=== PATIENT | male | born 1955 | race Caucasian/White ===

== ENCOUNTER 2018-01-10 09:55 | Day surgery (SDC) | payer OTHER ==
[~2018-01-10 09:55] MED LIST: LACTATED RINGERS 1,000 ML IV SCH; LIDOCAINE 1% 20 ML VIAL (10MG/ML) FOR IV START INTRADERMA PRN
[2018-01-10 10:54] VITALS: TEMP 97.6
--- NOTE | 2018-01-10 11:15 | P.GSHP ---
History of Present Illness H&P Date: 01/10/18 Chief Complaint: GI bleed This is a 62-year-old male referred from Dr. Maryam valentine. Patient presents today for colonoscopy. He's had issues with GI bleed. Past Medical History Past Medical History: GERD/Reflux Additional Past Medical History / Comment(s): COLON POLYPS AT FIRST COLONOSCOPY. History of Any Multi-Drug Resistant Organisms: None Reported Additional Past Surgical History / Comment(s): L5 TEAR IN DISC. BILATERAL ING HERNIA. Past Anesthesia/Blood Transfusion Reactions: No Reported Reaction Smoking Status: Never smoker Past Alcohol Use History: Rare Past Drug Use History: None Reported Medications and Allergies Home Medications Medication Instructions Recorded Confirmed Type ALPRAZolam [Xanax] 0.5 mg PO DAILY PRN 01/07/18 01/10/18 History Levothyroxine Sodium [Synthroid] 25 mcg PO QAM 01/07/18 01/10/18 History Omeprazole 20 mg PO Q7DAYS 01/07/18 01/10/18 History Allergies Allergy/AdvReac Type Severity Reaction Status Date / Time hydromorphone [From Dilaudid] AdvReac Nausea & Verified 01/07/18 08:39 Vomiting Surgical - Exam Vital Signs Temp Pulse Resp BP Pulse Ox 97.6 F 64 16 149/92 97 01/10/18 10:53 01/10/18 10:53 01/10/18 10:53 01/10/18 10:53 01/10/18 10:53 - General well developed, no distress - Eyes PERRL - ENT normal pinna - Neck no masses - Respiratory normal expansion - Cardiovascular Rhythm: regular - Abdomen Abdomen: soft, non tender Assessment and Plan Assessment: GI bleed. We'll perform colonoscopy
[2018-01-10] MEDS ORDERED: LIDOCAINE 1% INJ 10MG/ML (20 ML MDV) ONE (11:19)
[2018-01-10] MEDS ORDERED: PROPOFOL 10 MG/ML 20 ML VIAL IV ONE (11:19)
--- NOTE | 2018-01-10 11:35 | P.OP ---
Date of Procedure: 01/10/18 Preoperative Diagnosis: GI bleed Postoperative Diagnosis: Normal colonoscopy Procedure(s) Performed: Colonoscopy Anesthesia: MAC Surgeon: Adriel Galvan Pathology: none sent Condition: stable Disposition: PACU Description of Procedure: PROCEDURE: The patient was placed on the endoscopy table in the lateral position. Digital rectal examination was performed which revealed no abnormalities. The prostate was symmetrical without nodules. Flexible colonoscope was then placed in the patient's anus and passed throughout the entire colon. The ileocecal valve was visualized. The cecum, ascending, transverse, descending and sigmoid colon were normal. The rectum was normal as well. There were no masses, polyps or diverticula noted in the entire colon. SUMMARY OF FINDINGS: Normal colonoscopy.
[2018-01-10 11:49] VITALS: BP 127/79; PULSE 60; RESP 18
== END 2018-01-10 12:08 | disposition home or self-care (01) ==
LOC: ORWHC2ENDO 09:55
PROVIDERS: ATTEND Surgery
DX: K92.2 Gastrointestinal hemorrhage, unspecified (principal); K21.9 Gastro-esophageal reflux disease without esophagitis; E07.9 Disorder of thyroid, unspecified; Z86.010 Personal history of colon polyps; Z79.890 Hormone replacement therapy; Z79.899 Other long term (current) drug therapy; Z88.5 Allergy status to narcotic agent
CPT/HCPCS: 45378; J2001; J2704

== ENCOUNTER → 2022-12-15 | Outpatient (CLI) | payer MEDICARE ==
--- NOTE | 2022-12-15 15:22 | P.SLEEP ---
History of Present Illness H&P Date: 12/15/22 This is a 67-year-old male patient, who is coming in regarding further advice for sleep apnea therapy. 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 For complete clearance, sleep apnea evaluation was also requested. The patient is already done a home sleep study through his primary care physician and the patient was diagnosed having moderate to severe DAHIANA. I reviewed a home sleep study that was on this patient on 03/18/2022. The patient was found to have an AHI of 24.2 with mild nocturnal oxygen desaturations. Lowest pulse ox was 70%. His primary care physician attempted to order a CPAP unit and the patient did not receive any therapy and is coming in for further advice. He does have ongoing symptoms of obstructive sleep apnea. He snores and his been told to quit breathing at night. He goes to bed at around 9:30 PM and awakes at 5:30 AM in the morning. He is averaging about 7 hours of sleep. He wakes up not refreshed. He can easily take naps in the afternoon after work. His weight is stable at 240 pounds over the past several years. No history of any motor vehicle accident because of falling sleep. No history of any cardiac stents. He does not doze off behind the wheel. His current upper score is at 12. He has had issues with palpitations and bigeminy is. He also has issues with hypothyroidism and hypertension and chronic anxiety. No alcohol ingestion. No smoking. No nighttime heartburn, shortness of breath or chest pain. No other significant events otherwise for now. Review of Systems Constitutional: Reports daytime sleepiness Eyes: denies as per HPI, denies blurred vision, denies bulging eye, denies decreased vision, denies diplopia, denies discharge, denies dry eye, denies irritation, denies itching, denies pain, denies photophobia, denies loss of peripheral vision, denies loss of vision, denies tunnel vision/blind spots Ears: deny: decreased hearing, ear discharge, earache, tinnitus Ears, nose, mouth and throat: Reports as per HPI Breasts: absent: as per HPI, gynecomastia Cardiovascular: Reports as per HPI Respiratory: Reports sleep apnea, Reports snoring Gastrointestinal: Reports as per HPI Genitourinary: Reports as per HPI Musculoskeletal: Reports as per HPI Musculoskeletal: absent: ankle pain, ankle stiffness, ankle swelling Integumentary: Reports as per HPI Neurological: Reports as per HPI Psychiatric: Reports as per HPI Endocrine: Reports as per HPI Hematologic/Lymphatic: Reports as per HPI Allergic/Immunologic: Reports as per HPI Past Medical History Past Medical History: GERD/Reflux, Hypertension, Osteoarthritis (OA), Sleep Apnea/CPAP/BIPAP, Thyroid Disorder Additional Past Medical History / Comment(s): COLON POLYPS AT FIRST COLONOSCOPY , hx of covid 2021 History of Any Multi-Drug Resistant Organisms: None Reported Additional Past Surgical History / Comment(s): L5 TEAR IN DISC. BILATERAL ING HERNIA. repair laceration on left hand pointer finger. colonoscopy. Past Anesthesia/Blood Transfusion Reactions: No Reported Reaction Smoking Status: Never smoker - Past Family History Father Family Medical History: COPD Additional Family Medical History / Comment(s): smoker Mother Additional Family Medical History / Comment(s): anxiety. brother has diabetes. Medications and Allergies Home Medications Medication Instructions Recorded Confirmed Type ALPRAZolam [Xanax] 0.5 mg PO DAILY PRN 01/07/18 10/22/22 History Levothyroxine Sodium [Synthroid] 50 mcg PO QAM 01/07/18 10/22/22 History Omeprazole 20 mg PO DAILY PRN 01/07/18 10/22/22 History Losartan Potassium 50 mg PO HS 10/19/22 10/22/22 History Allergies Allergy/AdvReac Type Severity Reaction Status Date / Time hydromorphone [From Dilaudid] AdvReac Nausea & Verified 10/22/22 08:08 Vomiting Physical Exam BP is 156/78, pulse is 93, respirations 16, temperature is 98.1, weight is 244 pounds, height is 5 feet and 10 inches, BMI 34.5 and oxygen saturation is 98% on room air oxygen. The patient appeared well nourished and normally developed. Vital signs as documented. Head exam is unremarkable. No scleral icterus or corneal arcus noted. Neck is without jugular venous distension, thyromegaly, or carotid bruits. The patient is a Mallampati class IV with significant crowding of the posterior oropharynx. Carotid upstrokes are brisk bilaterally. Lungs are clear to auscultation and percussion. Cardiac exam reveals the PMI to be normally sized and situated. Rhythm is regular. First and second heart sounds normal. No murmurs, rubs or gallops. Abdominal exam reveals normal bowel sounds, no masses, no organomegaly and no aortic enlargement. Extremities are nonedematous and both femoral and pedal pulses are normal. Examination of the skin revealed no evidence of significant rashes, suspicious appearing nevi or other concerning lesions.Neurologically, the patient is awake and alert and the patient does not have any focal neurological deficit. Cranial nerves are essentially intact. 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 The patient has moderately severe disease. The patient's symptomatic from his DAHIANA. The patient will be offered a ResMed 11 APAP unit pressures of 5/15 cm of water. The patient is going to be offered a ResMed air fit F 20 fullface mask large size The patient will be encouraged to lose weight The patient will be asked to maintain regular sleep schedule and implement good sleep hygiene principles The patient will see me back in the office in 30-90 days after obtaining his CPAP machine for a compliancy check For clearance for a CVL license to follow Sleep Note - Sleep Note Sleep Note: Temperature: Pulse Rate: Respiratory Rate: Blood Pressure: SpO2: Height: Weight: BMI: Neck Circumference:
== END ==
LOC: SLEEP 14:30
PROVIDERS: ATTEND Internal Medicine Critical Care Medicine
DX: G47.33 Obstructive sleep apnea (adult) (pediatric) (principal); E66.9 Obesity, unspecified; Z68.34 Body mass index [BMI] 34.0-34.9, adult; E03.9 Hypothyroidism, unspecified; I10 Essential (primary) hypertension; F41.9 Anxiety disorder, unspecified; Z99.89 Dependence on other enabling machines and devices; K21.9 Gastro-esophageal reflux disease without esophagitis; M19.90 Unspecified osteoarthritis, unspecified site; Z88.5 Allergy status to narcotic agent; Z79.890 Hormone replacement therapy
CPT/HCPCS: 99211

== ENCOUNTER → 2023-04-20 | Outpatient (CLI) | payer MEDICARE, OTHER ==
--- NOTE | 2023-04-20 16:24 | P.PN ---
Progress Note - Text Progress Note Date: 04/20/23 On today's evaluation of 04/20/2023, I'm seeing this patient for a compliance check regarding his obstructive sleep apnea. As mentioned earlier, the patient has moderately severe disease with an AHI of 24 and the patient was given an APAP unit pressures of 5/15 cm of water. He is also using an Airfit F20 fullface mask large size. He was doing very well. He is trying to get more compliant and increase the number of hours that he is spending on his CPAP unit. He is on average taken around 4 or slightly above 4 hours of sleep while on CPAP. His AHI down to 2.1. Leaks are minimal at this point in time. He wants to also explore other possibilities in the form of masks. He is feeling more refreshed during the day. He is not taking any naps while on CPAP therapy and the has noticed that. He is snorting is also subsided. 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 He has also other comorbidities including hypothyroidism, hypertension and chronic anxiety. On today's evaluation, he failed to bring his Pulmicort to his machine and as such I was unable to look at the compliance data from the monitor. I was able to access his dashboard on his smart phone. I noticed that the patient needs to put slightly more hours to reach on average of 5 hours per night. Nevertheless, in terms of efficacy, his treatment is successful. His current vitals BP is 151/83, pulse is 81, respirations 12, temperature is 97.3 and the weight is 248 The patient appeared well nourished and normally developed. Vital signs as documented. Head exam is unremarkable. No scleral icterus or corneal arcus noted. Neck is without jugular venous distension, thyromegaly, or carotid bruits. Carotid upstrokes are brisk bilaterally. Lungs are clear to auscultation and percussion. Cardiac exam reveals the PMI to be normally sized and situated. Rhythm is regular. First and second heart sounds normal. No murmurs, rubs or gallops. Abdominal exam reveals normal bowel sounds, no masses, no organomegaly and no aortic enlargement. Extremities are nonedematous and both femoral and pedal pulses are normal. The patient has an Eldred score of 2 Assessment Symptomatic obstructive sleep apnea with an AHI of 23. 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 I'm also considering to switch this patient and air fit f30 i nasal mask at the later stage He needs to put more hours on a CPAP Overall his treatment is efficacious and the patient seems to be committed to long-term CPAP therapy Weight loss We'll continue to follow
== END ==
LOC: 3 N SLEEP 15:11
PROVIDERS: ATTEND Internal Medicine Critical Care Medicine
DX: G47.33 Obstructive sleep apnea (adult) (pediatric) (principal); E66.9 Obesity, unspecified; E03.9 Hypothyroidism, unspecified; F41.9 Anxiety disorder, unspecified; Z68.34 Body mass index [BMI] 34.0-34.9, adult; I10 Essential (primary) hypertension; Z99.89 Dependence on other enabling machines and devices; Z88.5 Allergy status to narcotic agent; Z79.890 Hormone replacement therapy
CPT/HCPCS: 99212